=== PATIENT | female | born 1995 | race Caucasian/White ===

== ENCOUNTER 2016-12-16 13:28 | Emergency (ER) | payer MEDICAID ==
[2016-12-16 16:21] VITALS: BP 117/91
== END 2016-12-16 16:15 | disposition home or self-care (01) ==
LOC: ED 13:28
DX: M10.9 Gout, unspecified (principal)
CPT/HCPCS: Q0092

== ENCOUNTER 2019-04-24 12:42 | Emergency (ER) | payer MEDICAID ==
[~2019-04-24] VITALS: Ht 152.4 cm; Wt 84.4 kg
[2019-04-24 13:17] VITALS: Ht 152.4 cm; Wt 84.4 kg
[2019-04-24 14:41] LABS: UA SPECIFIC GRAVITY >=1.030 (1.005-1.035); microscopic required? YES; urine erythrocyte TRACE (NEGATIVE)
[2019-04-24 14:49] LABS: BASOPHIL % 0.2 % (0-2); PLATELET COUNT 263 x10^3mcL (130-400); RED CELL DISTRIBUTION WIDTH 13.1 % (11.5-14.5)
[2019-04-24 15:20] LABS: CALCIUM 8.7 mg/dL (8.5-10.1); CARBON DIOXIDE 20.8 mmol/L (21-32); CHLORIDE SERUM 105 mmol/L (98-107); CREATININE SERUM 0.7 mg/dL (0.6-1.0); GFR1 > 60 mL/min; GLUCOSE SERUM 91 mg/dL (74-106); POTASSIUM SERUM 3.7 mmol/L (3.5-5.1); SODIUM SERUM 138 mmol/L (136-145); TOTAL PROTEIN, SERUM 8.3 g/dL (6.4-8.2)
[2019-04-24 15:21] LABS: ALKALINE PHOSPHATASE 74 U/L (46-116); ALT/SGPT 49 U/L (14-59); AST/SGOT 28 U/L (15-37); BILIRUBIN TOTAL 0.25 mg/dL (0.20-1.00)
[2019-04-24 16:30] VITALS: BP 100/70
[2019-04-24 16:31] LABS: AMPHETAMINE QUAL UR NONE DETECTED (See below)
== END 2019-04-24 16:30 | disposition home or self-care (01) ==
LOC: ED 12:42
PROVIDERS: Student in an Organized Health Care Education/Training Program
DX: J10.1 Influenza due to other identified influenza virus with other respiratory manifestations (principal); K29.70 Gastritis, unspecified, without bleeding; Z88.0 Allergy status to penicillin
CPT/HCPCS: 87804; Q0092; Q0162